=== PATIENT | female | born 1960 | race Caucasian/White ===

== ENCOUNTER 2017-10-23 17:30 | Emergency (ER) | payer BC, OTHER ==
[~2017-10-23 17:30] MED LIST: ISOVUE-370 76%-LOCM 1 ML ONE
[2017-10-23 18:04] LABS: Bilirubin Negative (Negative); Blood, Urine Negative (Negative); Clarity CLEAR (Clear); Glucose, Urine (Dipstick) Negative (Negative); Leukocyte Trace (Negative); Nitrite Negative (Negative); Protein, Urine (Dipstick) Negative (Neg-Trace); Specific Gravity, Urine 1.008 (1.002-1.036); Urobilinogen 0.2 mg/dL (0.2-1.0)
[2017-10-23 18:07] LABS: Bacteria/HPF None Seen HPF (None Seen); Hyaline Casts/LPF 0-3 HYALINE CAST LPF (0-3 Hyaline); Pregnancy Test - Urine (BHCG) Negative (Negative); Pregu Control Background? CLEAR/WHITE (CLR/WHITE); Pregu Control Bar Appear? YES (CONTROL BAR); RBC/HPF 0-3 HPF (0-3); Specific Gravity 1.008 (1.002-1.036); Squamous Epithelial 0-3 HPF (0-3); WBC/HPF 0-3 HPF (0-3)
[2017-10-23 18:24] LABS: #Basophils 0.1 thou/uL (0.0-0.2); #Eosinphils 0.1 thou/uL (0.0-0.7); #Lymphocytes 2.6 thou/uL (1.20-3.40); #Monocytes 0.8 thou/uL (0.11-0.59); %Basophils 0.6 % (0.0-1.0); %Eosinophils 1.3 % (0.0-10.0); %Lymphocytes 24.7 % (21.0-51.0); %Monocytes 7.7 % (0.0-10.0); %Neutrophils 65.7 % (42.0-75.0); Hemoglobin 13.5 g/dL (12.0-16.0); Mean Corpuscular HGB CONC 33.8 g/dL (32.0-36.0); Mean Corpuscular Hemoglobin 30.6 pg (27.0-31.0); Mean Corpuscular Volume 90.6 fl (81.0-99.0); Mean Platelet Volume 8.5 fL (7.4-10.4); Platelet Count 300 thou/uL (130-400); RBC Distribution Width 15.2 % (11.5-14.5); Red Blood Cell (RBC) Count 4.41 mill/uL (4.20-5.40); White Blood Cell (WBC) Count 10.7 thou/uL (4.8-10.8)
[2017-10-23 18:51] LABS: ALT (SGPT) 26 U/L (8-55); AST (SGOT) 25 U/L (5-34); Albumin 4.4 g/dL (3.5-5.0); Alkaline Phosphatase 88 U/L (40-150); Anion Gap 16 mmol/L (10-20); BUN (Urea Nitrogen) 12 mg/dL (9.8-20.1); Bilirubin, Total 0.5 mg/dL (0.2-1.2); Calc. Creatinine Clearance 0 mL/min (70-130); Calcium 9.9 mg/dL (7.8-10.44); Carbon Dioxide 26 mmol/L (22-29); Chloride 101 mmol/L (98-107); Estimated GFR-MDRD 79; Globulin 3.4 g/dL (2.4-3.5); Glucose 81 mg/dL (70-105); Lipase 52 U/L (8-78); Potassium 4.3 mmol/L (3.5-5.1); Protein, Total 7.8 g/dL (6.0-8.3); Sodium 139 mmol/L (136-145)
[2017-10-23] MEDS ORDERED: Ketorolac Tromethamine 30 MG/ML VIAL ONE (21:07)
--- NOTE | 2017-10-23 22:01 | ULT ---
PELVIC ULTRASOUND: HISTORY: Pain. COMPARISON: None. TECHNIQUE: Transabdominal and transvaginal imaging of the pelvis is performed. FINDINGS: The uterus and right adnexal structures are surgically absent. Left adnexa evaluation is limited. No obvious free fluid. IMPRESSION: Limited evaluation due to bowel gas and body habitus. The finding noted on recent CT is difficult to appreciate on the current exam. POS: [facility]
--- NOTE | 2017-10-23 22:24 | CT ---
ABDOMEN CT WITH CONTRAST: PELVIC CT WITH CONTRAST: HISTORY: Left flank pain. Abdominal pain. COMPARISON: None. TECHNIQUE: Abdomen and pelvis CT was performed with IV contrast. Enteric contrast was not administered. Anderson l reformatted images were submitted for interpretation. FINDINGS: ABDOMEN: The lung bases are clear. The heart size is within normal limits. No significant pericard ial fluid. The descending thoracic aorta and the abdominal aorta have a normal caliber. No periaort ic fat stranding. No gastrohepatic, retrocrural, or periportal lymphadenopathy. There are scattered nonspecific, nonenlarged mesenteric lymph nodes. No mesenteric mass, lymphadenopathy, free air, or free fluid. Symmetric attenuation of the psoas muscles. The gallbladder is unremarkable. Intrahepatic and extrahepatic portal vein is patent. The liver, spleen, pancreas, and adrenal glands have appropriate enhancement. Symmetric enhancement of the kidneys. Bilaterally, no obstructive uropathy. Limited evaluation of the alimentary canal due to lack of oral contrast. The gastric mucosa, duodenu m, and multiple normal caliber small bowel loops are noted. The ileocecal junction is normal. Carolyn l caliber appendix. Scattered fecal material in a nondistended, nondilated colon. Occasional divert iculum. No evidence of diverticulitis. Diverticulosis without evidence of diverticulitis in the sig moid colon. PELVIS: The urinary bladder is unremarkable. Surgically absent uterus. The left ovary is identifie d with an associated nonspecific calcification. No pelvic lymphadenopathy, free air, or free fluid. No lytic or blastic lesions of the osseous structures. IMPRESSION: 1. No evidence of bowel obstruction. 2. Normal caliber appendix. 3. No evidence of obstructive uropathy. There are no calcifications in the left or right intrarenal /extrarenal collecting system. 4. Irregular appearing left adnexal structure, presumed to be the left ovary. Significance is uncer tain. Correlate clinically with gynecological consultation. POS: [facility]
== END 2017-10-24 01:05 | disposition home or self-care (01) ==
LOC: ERS 17:30
DX: N83.9 Noninflammatory disorder of ovary, fallopian tube and broad ligament, unspecified (principal); K21.9 Gastro-esophageal reflux disease without esophagitis; I10 Essential (primary) hypertension; Z79.899 Other long term (current) drug therapy; Z87.891 Personal history of nicotine dependence
CPT/HCPCS: 74177; 76856; 80053; 81003; 81015; 81025; 83690; 85025; 96361; 96374; 96375; 96376; J1885; J2270

== ENCOUNTER 2017-10-26 19:07 | Emergency (ER) | payer BC ==
[2017-10-26] MEDS ORDERED: Morphine 10 MG/ML VIAL ONE (20:20)
[2017-10-26] MEDS ORDERED: Ketorolac Tromethamine 30 MG/ML VIAL ONE (20:20)
[2017-10-26] MEDS ORDERED: Ondansetron ODT 4 MG TAB ONE (20:20)
[2017-10-26] MEDS ORDERED: Glycopyrrolate 0.2 MG/ML 5 ML SYRINGE SLOW IVP SCH (20:30)
[2017-10-26 22:00] LABS: #Eosinphils 0.2 thou/uL (0.0-0.7); #Lymphocytes 2.4 thou/uL (1.20-3.40); #Monocytes 0.7 thou/uL (0.11-0.59); #Neutrophils 5.8 thou/uL (1.40-6.50); %Basophils 0.5 % (0.0-1.0); %Eosinophils 1.8 % (0.0-10.0); %Lymphocytes 26.6 % (21.0-51.0); %Monocytes 7.4 % (0.0-10.0); %Neutrophils 63.7 % (42.0-75.0); Hemoglobin 12.3 g/dL (12.0-16.0); Mean Corpuscular HGB CONC 34.2 g/dL (32.0-36.0); Mean Corpuscular Hemoglobin 30.9 pg (27.0-31.0); Mean Corpuscular Volume 90.3 fl (81.0-99.0); Mean Platelet Volume 8.3 fL (7.4-10.4); Platelet Count 254 thou/uL (130-400); RBC Distribution Width 14.8 % (11.5-14.5); Red Blood Cell (RBC) Count 3.97 mill/uL (4.20-5.40)
[2017-10-26 22:21] LABS: ALT (SGPT) 23 U/L (8-55); AST (SGOT) 20 U/L (5-34); Albumin 3.7 g/dL (3.5-5.0); Alkaline Phosphatase 71 U/L (40-150); Anion Gap 14 mmol/L (10-20); BUN (Urea Nitrogen) 12 mg/dL (9.8-20.1); Bilirubin, Total 0.5 mg/dL (0.2-1.2); Calc. Creatinine Clearance 0 mL/min (70-130); Calcium 8.9 mg/dL (7.8-10.44); Carbon Dioxide 24 mmol/L (22-29); Chloride 106 mmol/L (98-107); Estimated GFR-MDRD 87; Globulin 2.6 g/dL (2.4-3.5); Glucose 78 mg/dL (70-105); Lipase 26 U/L (8-78); Protein, Total 6.3 g/dL (6.0-8.3); Sodium 140 mmol/L (136-145)
== END 2017-10-26 22:50 | disposition home or self-care (01) ==
LOC: ERS 19:07
DX: R10.9 Unspecified abdominal pain (principal); K21.9 Gastro-esophageal reflux disease without esophagitis; F41.9 Anxiety disorder, unspecified; I10 Essential (primary) hypertension; Z79.899 Other long term (current) drug therapy
CPT/HCPCS: 36415; 80053; 83690; 85025; 96361; 96374; 96375; J1885; J2270; Q0162

== ENCOUNTER 2017-11-09 13:27 | Outpatient (CLI) | payer BC | END 2017-11-09 13:28 | disposition home or self-care (01) | LOC: BICULT 13:27 | PROVIDERS: ATTEND Internal Medicine Gastroenterology | DX: R10.9 Unspecified abdominal pain (principal) | CPT/HCPCS: 76705 ==

== ENCOUNTER 2018-03-04 01:54 | Emergency (ER) | payer BC ==
[2018-03-04 02:50] LABS: #Basophils 0.1 thou/uL (0.0-0.2); #Eosinphils 0.2 thou/uL (0.0-0.7); #Lymphocytes 2.7 thou/uL (1.20-3.40); #Monocytes 0.8 thou/uL (0.11-0.59); #Neutrophils 6.9 thou/uL (1.40-6.50); %Basophils 0.5 % (0.0-1.0); %Eosinophils 2.3 % (0.0-10.0); %Lymphocytes 25.5 % (21.0-51.0); %Monocytes 7.1 % (0.0-10.0); %Neutrophils 64.6 % (42.0-75.0); Hemoglobin 13.1 g/dL (12.0-16.0); Mean Corpuscular HGB CONC 33.5 g/dL (32.0-36.0); Mean Corpuscular Hemoglobin 30.7 pg (27.0-31.0); Mean Corpuscular Volume 91.9 fL (78.0-98.0); Mean Platelet Volume 8.5 fL (7.4-10.4); Platelet Count 316 thou/uL (130-400); RBC Distribution Width 15.1 % (11.5-14.5); Red Blood Cell (RBC) Count 4.25 mill/uL (4.20-5.40); White Blood Cell (WBC) Count 10.6 thou/uL (4.8-10.8)
[2018-03-04] MEDS ORDERED: Ketorolac Tromethamine 30 MG/ML VIAL ONE (02:58)
[2018-03-04 03:11] LABS: ALT (SGPT) 23 U/L (8-55); AST (SGOT) 21 U/L (5-34); Albumin 4.4 g/dL (3.5-5.0); Alkaline Phosphatase 88 U/L (40-150); Anion Gap 13 mmol/L (10-20); BUN (Urea Nitrogen) 12 mg/dL (9.8-20.1); Bilirubin, Total 0.6 mg/dL (0.2-1.2); Calc. Creatinine Clearance 0 mL/min (70-130); Calcium 9.7 mg/dL (7.8-10.44); Carbon Dioxide 29 mmol/L (22-29); Chloride 99 mmol/L (98-107); Estimated GFR-MDRD 68; Globulin 3.2 g/dL (2.4-3.5); Glucose 104 mg/dL (70-105); Lipase 40 U/L (8-78); Potassium 3.7 mmol/L (3.5-5.1); Protein, Total 7.6 g/dL (6.0-8.3); Sodium 137 mmol/L (136-145)
[2018-03-04 03:15] LABS: Bilirubin Negative (Negative); Blood, Urine Negative (Negative); Clarity CLEAR (Clear); Glucose, Urine (Dipstick) Negative (Negative); Leukocyte Small (Negative); Nitrite Negative (Negative); Protein, Urine (Dipstick) Negative (Neg-Trace); Specific Gravity, Urine 1.004 (1.002-1.036); Urobilinogen 0.2 mg/dL (0.2-1.0); pH, Urine 5.5 (5.0-9.0)
[2018-03-04 03:17] LABS: Bacteria/HPF None Seen HPF (None Seen); Hyaline Casts/LPF 0-3 HYALINE CAST LPF (0-3 Hyaline); RBC/HPF 0-3 HPF (0-3); Squamous Epithelial 0-3 HPF (0-3)
[2018-03-04] MEDS ORDERED: Morphine 4 MG/ML VIAL ONE (03:44)
--- NOTE | 2018-03-04 11:44 | CT ---
PRELIMINARY REPORT/[facility]/EMERGENCY AFTER HOURS PROCEDURE: EXAM: CT Abdomen and Pelvis Without Intravenous Contrast CLINICAL HISTORY: 57 years old, female; Pain; Abdominal pain; Flank; Left; Patient HX: Patient presents for evaluation of flank pain, on the left TECHNIQUE: Axial computed tomography images of the abdomen and pelvis without intravenous contrast. Coronal refo rmatted images were created and reviewed. COMPARISON: No relevant prior studies available. FINDINGS: Lung bases: Normal. No mass. No consolidation. Mediastinum: Small-sized hiatal hernia. ABDOMEN: Liver: Normal. Gallbladder and bile ducts: Normal. Pancreas: Normal. Spleen: Normal. Adrenals: Normal. Kidneys and ureters: Normal. Stomach and bowel: Minimal wall thickening of a short segment of proximal jejunum, possibly minimal i nfectious/inflammatory enteritis. Scattered colonic diverticulosis. PELVIS: Appendix: Appendix is normal. Bladder: Normal. Reproductive: Uterus is surgically absent. ABDOMEN and PELVIS: Intraperitoneal space: Normal. No free air. No significant fluid collection. Bones/joints: Multilevel thoracolumbar spine degenerative changes. No acute fracture. No dislocation. Soft tissues: Normal. Vasculature: Phleboliths within the pelvis. No abdominal aortic aneurysm. Lymph nodes: Normal. IMPRESSION: 1. Minimal wall thickening of a short segment of proximal jejunum, possibly minimal infectious/inflam matory enteritis. 2. Incidental/non-acute findings are described above. Thank you for allowing us to participate in the care of your patient. Dictated and Authenticated by: Kiran Ramos MD 03/04/2018 4:21 AM Central Time ([place] & [place]) FINAL REPORT EMERGENCY AFTER HOURS ABDOMEN AND PELVIC CT SCAN WITHOUT IV CONTRAST: Date: 03/04/18 Time: 0323 hours No renal calculi or acute obstruction. Minimal nonspecific wall thickening of the proximal jejunum , possibly some type of nonspecific jejunitis. Normal appearing appendix. No evidence for other signi ficant acute process. Report in agreement with preliminary report given on-call by Charo. POS: [facility]
== END 2018-03-04 05:43 | disposition home or self-care (01) ==
LOC: ERS 01:54
DX: R10.9 Unspecified abdominal pain (principal); K21.9 Gastro-esophageal reflux disease without esophagitis; F41.9 Anxiety disorder, unspecified; Z79.899 Other long term (current) drug therapy
CPT/HCPCS: 36415; 74176; 80053; 81003; 81015; 83690; 85025; 96361; 96374; 96375; J1885; J2270

== ENCOUNTER 2018-10-22 09:20 | Outpatient (CLI) | payer BC ==
--- NOTE | 2018-10-22 14:31 | NM ---
NUCLEAR MEDICINE BONE SCAN 3 PHASE FOOT AND WHOLE BODY: (SKELETAL SCINTIGRAPHY) DATE: 10/22/2018 HISTORY: 58-year-old female with right foot pain TECHNIQUE: IV injection of technetium 99m-MDP: 30.0 mCi Flow, immediate blood pool, and 3 hour delay, images of bilateral feet. 3 hour delayed whole body skeletal scintigraphy in anterior and posterior views. FINDINGS: There is increased blood flow to the right foot. On the immediate blood pool images, there is increas ed activity in the soft tissues of the right hindfoot and ankle. On the three-hour delayed images, there is increased bone uptake at the tibiotalar joint, and separately at the plantar posterior calca neus of the right foot. Incidentally, there are much smaller foci of increased uptake in the contralateral left foot, involvi ng first MTP joint, and region of base of fifth metatarsal, probably representing degenerative changes, as well as at the ankle. No abnormal areas of uptake in the rest of the skeleton. IMPRESSION: 1) increased blood flow, soft tissue uptake, and bone uptake, involving portions of the right posteri or foot. Because there has been arthrodesis surgery in this location that would also cause increased bone uptake, it is not possible to determine whether or not there is osteomyelitis in this location. The increased flow and soft tissue uptake is suggestive of infection or inflammation of the soft tissues.
== END 2018-10-22 09:21 | disposition home or self-care (01) ==
LOC: NM 09:20
PROVIDERS: ATTEND Orthopaedic Surgery
DX: T84.84XA Pain due to internal orthopedic prosthetic devices, implants and grafts, initial encounter (principal); M19.071 Primary osteoarthritis, right ankle and foot
CPT/HCPCS: 78315

== ENCOUNTER 2021-03-08 12:59 | Outpatient (CLI) | payer BC | END 2021-03-08 13:00 | disposition home or self-care (01) | LOC: BICMAMMO 12:59 | PROVIDERS: ATTEND Internal Medicine | DX: Z12.31 Encounter for screening mammogram for malignant neoplasm of breast (principal); Z80.3 Family history of malignant neoplasm of breast | CPT/HCPCS: 77063; 77067 ==